=== PATIENT | female | born 1995 | race Caucasian/White ===

== ENCOUNTER 2016-09-17 17:10 | Emergency (ER) | payer OTHER ==
[~2016-09-17 17:10] MED LIST: PRENATAL1 TAB PO
--- NOTE | 2016-09-17 20:38 | DIAGNOSTIC IMAGING REPORT ---
PROCEDURE: CT HEAD WITHOUT CONTRAST INDICATION: HEADACHE TECHNIQUE: Noncontrast axial images with sagittal and coronal reformations. COMPARISON: None. FINDINGS: Brain and ventricles are normal. No evidence of an acute process or hemorrhage. Sinuses and mastoids are normal. Portions of the orbits are seen, and are normal. IMPRESSION: 1. Negative head CT. 2. Findings discussed with Dr. Barbara Small at [address] scans at this facility use dose modulation, iterative reconstruction, and/or weight-based dosing when appropriate to reduce radiation dose to as low as reasonably achievable.
--- NOTE | 2016-09-17 20:41 | ED NURSING NOTES ---
Clinical Report - Nurses [facility] [address] [place] [address] 09/17/2016 17:12 Patient: MILO DESIR TRIAGE Triage time 17:Sep 17 2016. Acuity: LEVEL 4. Chief Complaint: HEADACHE. 17:09/17/16. 17:09/17/16. Alert. No acute distress. --17:30 Gael Galaviz R.N. 17:09/17/16. BP: 117/76. HR: 95. RR: 18. O2 saturation: 99%. Temp: 98 F (oral). Pain level now: 10/05. --17:30 Gael Galaviz R.N. Weight: 61.2 kg stated. Height/Length: 67 inches Per Patient. BMI: 21.2. --17:28 Gael Galaviz R.N. Medications Abx for UTI, , 3 days pt has been on this med for UTI. --17:29 Gael Galaviz R.N. The following entry was struck by Gael Galaviz R.N., 17:29 (09/17/16) Reason - other. <<STRICKEN ENTRY-- None. --17:28 Gael Galaviz R.N. --END STRIKE>>. Medication/allergy information source: the patient. --17:30 Gael Galaviz R.N. Allergies No Known Drug Allergy. --17:28 Gael Galaviz R.N. History Arrived by private vehicle. Primary physician (GABRIELLA BRIONES). 17:27 09/17/16. This started today. ( Pt with MAX, and pain located behind her right eye). 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 PAST MEDICAL HX: Immunizations: up-to-date. Last normal menstrual period- "I just had a baby". SOCIAL HX: Never smoker. No alcohol use or drug use. No recent travel. No infectious disease exposure. No known contact with a sick individual. ABUSE ASSESSMENT: No report of abuse. FALL RISK ASSESSMENT: Fall risk assessment completed. No fall risk identified. NUTRITIONAL RISK ASSESSMENT: The nutritional risk assessment revealed no deficiencies. FUNCTIONAL ASSESSMENT: Functional assessment: no impairments noted. LEARNING NEEDS ASSESSMENT: The learning needs assessment revealed no barriers. SKIN INTEGRITY ASSESSMENT: Skin integrity risk assessment completed. No skin integrity risk identified. --17:30 Gael Galaviz R.N. PROBLEMS: Pelvic Pain. Vaginitis. Immunizations. Cystitis. UTI - Urinary Tract Infection. Ovarian Cyst. --17:29 Gael Galaviz R.N. Headache. --17:29 Gael Galaviz R.N. ADDITIONAL SURGERIES: Wrist. --17:29 Gael Galaviz R.N. Assessment 17:09/17/16. --17:30 Gael Galaviz R.N. Interventions 17:09/17/16. 17:09/17/16. ID and allergy band on patient. To treatment room. --17:30 Gael Galaviz R.N. PHYSICAL ASSESSMENT 17:09/17/16. GENERAL / NEURO / PSYCH: Alert. Oriented X 4. Appears in no acute distress. Speech within normal limits. RESPIRATORY: Respirations not labored. CVS: Capillary refill less than 2 seconds. SKIN: Skin is warm and dry. --17:30 Gael Galaviz R.N. NURSING PROGRESS NOTES 17:09/17/16. The plan of care for this patient has been created. Head of bed elevated. Reassurance given. Lights dimmed. Call light placed in reach. Side rails up x 2. Bed placed in lowest position. Brakes of bed on. --17:31 Gael Galaviz R.N. 17:09/17/16. Patient ready for evaluation- chart flagged and notification provided. --17:31 Gael Galaviz R.N. 18:09/17/16. Patient informed about reason for wait and about plan of care. --18:27 Gael Galaviz R.N. 18:29 09/17/16. --18:29 Gael Galaviz R.N. 18:28 09/17/16. BP: 113/74. HR: 78. RR: 15. O2 saturation: 99% on room air. --18:29 Gael Galaviz R.N. 19:09 09/17/16. Care transferred and report given. --19:09 Gael Galaviz R.N. ( pt states she has kids at home and wants to see an MD now, explained that we are busy and MD will see her as soon as possible.). --19:17 Maribell Serrato Patient transported to [place] by wheelchair. --19:50 Maribell Serrato Patient returned from CT by wheelchair. --20:05 Maribell Serrato DISPOSITION / DISCHARGE Departure time: 20:50. Condition at departure: improved. No learning barriers present. Discharge instructions provided and reviewed with the patient. Reviewed medication(s) side effects, precautions, dosing and course information. Prescription(s) given to the patient. Patient verbalized understanding. Written instructions provided in Tajik. No warning instructions, treatment instructions, referrals given to the patient, diet instructions or activity restrictions. No note given, follow up contact number given or stop smoking instructions. The patient was discharged by the physician. She was discharged home. She left the Emergency Department ambulatory and via private vehicle. Patient driving. FALL RISK ASSESSMENT: Fall risk assessment completed. No fall risk identified. --20:50 Maribell Serrato 20:49 09/17/16. BP: 124/64. HR: 68. RR: 16. O2 saturation: 99%. Temp: deferred. Pain level now: 09/04. --20:50 Maribell Serrato Locked/Released at 09/17/2016 20:51 by Maribell Serrato
--- NOTE | 2016-09-17 20:41 | ED NURSING NOTES ---
Clinical Report - Nurses [facility] [address] [place] [address] 09/17/2016 17:12 Patient: MILO DESIR TRIAGE Triage time 17:Sep 17 2016. Acuity: LEVEL 4. Chief Complaint: HEADACHE. 17:09/17/16. 17:09/17/16. Alert. No acute distress. --17:30 Gael Galaviz R.N. 17:09/17/16. BP: 117/76. HR: 95. RR: 18. O2 saturation: 99%. Temp: 98 F (oral). Pain level now: 10/05. --17:30 Gael Galaviz R.N. Weight: 61.2 kg stated. Height/Length: 67 inches Per Patient. BMI: 21.2. --17:28 Gael Galaviz R.N. Medications Abx for UTI, , 3 days pt has been on this med for UTI. --17:29 Gael Galaviz R.N. The following entry was struck by Gael Galaviz R.N., 17:29 (09/17/16) Reason - other. <<STRICKEN ENTRY-- None. --17:28 Gael Galaviz R.N. --END STRIKE>>. Medication/allergy information source: the patient. --17:30 Gael Galaviz R.N. Allergies No Known Drug Allergy. --17:28 Gael Galaviz R.N. History Arrived by private vehicle. Primary physician (GABRIELLA BRIONES). 17:27 09/17/16. This started today. ( Pt with MAX, and pain located behind her right eye). 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 PAST MEDICAL HX: Immunizations: up-to-date. Last normal menstrual period- "I just had a baby". SOCIAL HX: Never smoker. No alcohol use or drug use. No recent travel. No infectious disease exposure. No known contact with a sick individual. ABUSE ASSESSMENT: No report of abuse. FALL RISK ASSESSMENT: Fall risk assessment completed. No fall risk identified. NUTRITIONAL RISK ASSESSMENT: The nutritional risk assessment revealed no deficiencies. FUNCTIONAL ASSESSMENT: Functional assessment: no impairments noted. LEARNING NEEDS ASSESSMENT: The learning needs assessment revealed no barriers. SKIN INTEGRITY ASSESSMENT: Skin integrity risk assessment completed. No skin integrity risk identified. --17:30 Gael Galaviz R.N. PROBLEMS: Pelvic Pain. Vaginitis. Immunizations. Cystitis. UTI - Urinary Tract Infection. Ovarian Cyst. --17:29 Gael Galaviz R.N. Headache. --17:29 Gael Galaviz R.N. ADDITIONAL SURGERIES: Wrist. --17:29 Gael Galaviz R.N. Assessment 17:09/17/16. --17:30 Gael Galaviz R.N. Interventions 17:09/17/16. 17:09/17/16. ID and allergy band on patient. To treatment room. --17:30 Gael Galaviz R.N. PHYSICAL ASSESSMENT 17:09/17/16. GENERAL / NEURO / PSYCH: Alert. Oriented X 4. Appears in no acute distress. Speech within normal limits. RESPIRATORY: Respirations not labored. CVS: Capillary refill less than 2 seconds. SKIN: Skin is warm and dry. --17:30 Gael Galaviz R.N. NURSING PROGRESS NOTES 17:09/17/16. The plan of care for this patient has been created. Head of bed elevated. Reassurance given. Lights dimmed. Call light placed in reach. Side rails up x 2. Bed placed in lowest position. Brakes of bed on. --17:31 Gael Galaviz R.N. 17:09/17/16. Patient ready for evaluation- chart flagged and notification provided. --17:31 Gael Galaviz R.N. 18:09/17/16. Patient informed about reason for wait and about plan of care. --18:27 Gael Galaviz R.N. 18:29 09/17/16. --18:29 Gael Galaviz R.N. 18:28 09/17/16. BP: 113/74. HR: 78. RR: 15. O2 saturation: 99% on room air. --18:29 Gael Galaviz R.N. 19:09 09/17/16. Care transferred and report given. --19:09 Gael Galaviz R.N. ( pt states she has kids at home and wants to see an MD now, explained that we are busy and MD will see her as soon as possible.). --19:17 Maribell Serrato Patient transported to [place] by wheelchair. --19:50 Maribell Serrato Patient returned from CT by wheelchair. --20:05 Maribell Serrato DISPOSITION / DISCHARGE Departure time: 20:50. Condition at departure: improved. No learning barriers present. Discharge instructions provided and reviewed with the patient. Reviewed medication(s) side effects, precautions, dosing and course information. Prescription(s) given to the patient. Patient verbalized understanding. Written instructions provided in Irish. No warning instructions, treatment instructions, referrals given to the patient, diet instructions or activity restrictions. No note given, follow up contact number given or stop smoking instructions. The patient was discharged by the physician. She was discharged home. She left the Emergency Department ambulatory and via private vehicle. Patient driving. FALL RISK ASSESSMENT: Fall risk assessment completed. No fall risk identified. --20:50 Maribell Serrato 20:49 09/17/16. BP: 124/64. HR: 68. RR: 16. O2 saturation: 99%. Temp: deferred. Pain level now: 09/04. --20:50 Maribell Serrato Locked/Released at 09/17/2016 20:51 by Maribell Serrato
--- NOTE | 2016-09-17 20:41 | ED CLINICAL REPORT ---
Clinical Report - Physicians/Mid Levels [facility] [address] [place] [address] 09/17/2016 17:12 Patient: MILO DESIR Time Seen: 17:33. Arrived- By private vehicle. Historian- patient. HISTORY OF PRESENT ILLNESS Chief Complaint: HEADACHE. Is still present. This started today. Onset during pain developed gradually throughout the day. It is described as "pain". Located in the region of the right eye. No neck pain. At its maximum, severity described as moderate. When seen in the E.D., severity described as moderate. Modifying factors: worsened by bright light; relieved by nothing. The patient has had photophobia and nausea. No preceding symptoms, blurred vision, numbness or weakness. (Patient has no history of glaucoma. She states that she is concerned because her mother used to get hemorrhages behind her eyes,, secondary to PNH.). Similar symptoms previously: None. Recent medical care: Not recently seen/assessed. REVIEW OF SYSTEMS No fever, muscle aches, sinus pressure, ear pain or sore throat. No head injury, chest pain, difficulty breathing, cough or abdominal pain. No diarrhea, pain with urination, skin rash, enlarged lymph nodes or back pain. All systems otherwise negative, except as recorded above. PAST HISTORY Problems: Vaginitis. Immunizations. Cystitis. LNMP - Last Normal Menstrual Period. Ovarian Cyst. Additional Surgeries: Wrist. Medications: Abx for UTI, , 3 days pt has been on this med for UTI. Allergies: No Known Drug Allergy. SOCIAL HISTORY Never smoker. No alcohol use or drug use. ADDITIONAL NOTES The nursing notes have been reviewed. PHYSICAL EXAM Vital Signs: 09/17/2016 17:27 BP: 117/76. HR: 95. RR: 18. O2 saturation: 99%. Temp: 98 F. Pain level now: 6/10. Have been reviewed. Appearance: Alert. No acute distress. (atient appears moderately uncomfortable, with her hand over her right eye, leaning forward on the bed.). Eyes: Pupils equal, round and reactive to light. Eyes normal inspection. No conjunctival findings. (Tonometry reading on the patient's right eye reveals an average pressure of 14 over 10 taps. Patient has mild tenderness of her right globe. She does not have corneal haziness.). ENT: Nose normal. Neck: Normal inspection. CVS: Normal heart rate and rhythm. Heart sounds normal. Pulses normal. Respiratory: No respiratory distress. Abdomen: Soft and nontender. Back: Normal inspection. Skin: Skin warm and dry. Normal skin color. No rash. Normal skin turgor. Extremities: Extremities exhibit normal ROM. Neuro: Alert. Mood/affect normal. Speech normal. Cranial nerves normal (as tested). No cerebellar findings. (Patient is grossly oriented. Motor and sensory are grossly intact.). LABS, X-RAYS, AND EKG CT Head: Normal study. No acute changes. No bony abnormalities, no hemorrhage, no intracranial mass, no midline shift and no hydrocephalus. No atrophy. Head CT performed without contrast. The study was independently viewed by me, interpreted by the radiologist and contemporaneously by me and discussed with the radiologist. Prior studies were not available for comparison. Pulse Oximetry: 09/17/2016 17:27 O2 saturation: 99%. (FIO2 - room air). Interpretation: normal. PROGRESS AND PROCEDURES Course of Care: I was concerned about the patient's globe tenderness and right eye pain and felt she should be evaluated for glaucoma. However, her tonometry looked very good. She also did not have corneal haziness or injection. The patient had no visual deficits, but I did feel she should be worked up with CT scan given the family history of intracranial hemorrhage. This was done and found to be unremarkable. The patient had nearly full range of motion of her neck and no meningeal signs. The patient declined any analgesia in the emergency department even nonnarcotic. She did except a prescription for pain medication as an outpatient however No emergent condition was identified, and it did show the patient was stable for discharge home. Patient counseled in person regarding the patient's stable condition, diagnosis and need for follow-up. Concerns were addressed. Old medical records reviewed. Disposition: Discharged. Condition: stable and improved. CLINICAL IMPRESSION Acute migraine headache without aura. INSTRUCTIONS (Your CT scan and eye pressures look good.). Warnings: GENERAL WARNINGS: Return or contact your physician immediately if your condition worsens or changes unexpectedly, if not improving as expected, or if other problems arise. Your Current Medications: CONTINUE TAKING THE FOLLOWING MEDICATIONS: Abx for UTI* : 3 days pt has been on this med for UTI. Prescription Medications: Hydrocodone/APAP 5mg / 325mg: take 1 orally every 6 hours as needed for pain. Dispense five (5). No refill. Imitrex 50 mg: take 1 tablet orally every 2 hours as needed for migraine headache. Do not take more than 4 tablets in any 24 hour period. Dispense ten (10). No refill. Substitution is permissible. Follow-up: Follow up with your doctor as needed. Understanding of the discharge instructions verbalized by patient. (Electronically signed by Barbara Small MD 09/19/2016 8:00)
--- NOTE | 2016-09-17 20:42 | ED ORDER SUMMARY ---
..... Patient: MILO DESIR OrderSheet [facility] VisitID: [id number] [address] [place] [address] 20y, F Registration Date/Time: 09/17/2016 ORDER SHEET Weight: 61.2 kg (stated) Allergies: No Known Drug Allergy GENERAL ORDERS: CT Head wo Cont Urgent (19:40 09/17/2016 Anurag LUU) (Ack 19:44 AMcQuoid ER Tech1) (20:00 [facility]) MEDICATION ORDERS: IV FLUIDS: ORDER SHEET NOTES: [Electronically signed by Alejandra Noel R.N. (20:51 09/17/2016)] [Electronically signed by Barbara Small MD (08:00 09/19/2016)] [Electronically locked/signed by Alejandra Noel R.N. (20:51 09/17/2016)]
--- NOTE | 2016-09-17 20:42 | ED ORDER SUMMARY ---
..... Patient: MILO DEISR OrderSheet [facility] VisitID: [id number] [address] [place] [address] 20y, F Registration Date/Time: 09/17/2016 ORDER SHEET Weight: 61.2 kg (stated) Allergies: No Known Drug Allergy GENERAL ORDERS: CT Head wo Cont Urgent (19:40 09/17/2016 Anurag LUU) (Ack 19:44 AMcQuoid ER Tech1) (20:00 [facility]) MEDICATION ORDERS: IV FLUIDS: ORDER SHEET NOTES: [Electronically signed by Alejandra Noel R.N. (20:51 09/17/2016)] [Electronically signed by Barbara Small MD (08:00 09/19/2016)] [Electronically locked/signed by Alejandra Noel R.N. (20:51 09/17/2016)]
--- NOTE | 2016-09-19 08:01 | ED MAR SUMMARY ---
..... Medication Administration Record [facility] [address] [place], [place] [id number] Patient: MILO DESIR Petr Visit ID: [id number] 20y, F Weight: 61.2 kg Height/Length: 67 in BMI: 21.2 ALLERGIES: No Known Drug Allergy
--- NOTE | 2016-09-19 08:01 | ED MED RECONCILIATION SUMMARY ---
Patient: MILO DESIR Medication Reconciliation Report VisitID: [id number] [address] [place] [address] 20y, F Registration Date/Time: 09/17/2016 Weight: 61.2 kg Height/Length: 67 in. BMI: 21.2 ALLERGIES: No Known Drug Allergy The patient's Home Medications are listed below: CONTINUE TAKING THE FOLLOWING MEDICATIONS: Abx for UTI, 3 days pt has been on this med for UTI The source(s) of the original Home Medication information: patient The following Medications were given to the patient in the Emergency Department: None. The following Medications were prescribed to the patient: Hydrocodone/APAP 5mg / 325mg: take 1 orally every 6 hours as needed for pain. Dispense five (5). No refill. -- Barbara Small MD Imitrex 50 mg: take 1 tablet orally every 2 hours as needed for migraine headache. Do not take more than 4 tablets in any 24 hour period. Dispense ten (10). No refill. Substitution is permissible. -- Barbara Small MD
--- NOTE | 2016-09-19 08:01 | ED MED RECONCILIATION SUMMARY ---
Patient: MILO DESIR Medication Reconciliation Report [facility] VisitID: [id number] [address] [place] [address] 20y, F Registration Date/Time: 09/17/2016 Weight: 61.2 kg Height/Length: 67 in. BMI: 21.2 ALLERGIES: No Known Drug Allergy The patient's Home Medications are listed below: CONTINUE TAKING THE FOLLOWING MEDICATIONS: Abx for UTI, 3 days pt has been on this med for UTI The source(s) of the original Home Medication information: patient The following Medications were given to the patient in the Emergency Department: None. The following Medications were prescribed to the patient: Hydrocodone/APAP 5mg / 325mg: take 1 orally every 6 hours as needed for pain. Dispense five (5). No refill. -- Barbara Small MD Imitrex 50 mg: take 1 tablet orally every 2 hours as needed for migraine headache. Do not take more than 4 tablets in any 24 hour period. Dispense ten (10). No refill. Substitution is permissible. -- Barbara Small MD
--- NOTE | 2016-09-19 08:01 | ED MAR SUMMARY ---
..... Medication Administration Record [facility] [address] [place], [place] [id number] Patient: MILO DESIR Petr Visit ID: [id number] 20y, F Weight: 61.2 kg Height/Length: 67 in BMI: 21.2 ALLERGIES: No Known Drug Allergy
--- NOTE | 2016-09-19 08:01 | ED DISCHARGE INSTRUCTIONS ---
Patient: MILO DESIR General Instructions [facility] VisitID: [id number] [place] [address] 20y, F Registration Date/Time: 09/17/2016 Acute migraine headache without aura. INSTRUCTIONS (Your CT scan and eye pressures look good.). Warnings: GENERAL WARNINGS: Return or contact your physician immediately if your condition worsens or changes unexpectedly, if not improving as expected, or if other problems arise. Your Current Medications: CONTINUE TAKING THE FOLLOWING MEDICATIONS: Abx for UTI* : 3 days pt has been on this med for UTI. Prescription Medications: Hydrocodone/APAP 5mg / 325mg: take 1 orally every 6 hours as needed for pain. Dispense five (5). No refill. Imitrex 50 mg: take 1 tablet orally every 2 hours as needed for migraine headache. Do not take more than 4 tablets in any 24 hour period. Dispense ten (10). No refill. Substitution is permissible. Follow-up: Follow up with your doctor as needed. Understanding of the discharge instructions verbalized by patient. ADDITIONAL INFORMATION Migraine Headache Migraine headaches are related to changes in blood flow to the brain. This causes throbbing or constant pain on one or both sides of the head. The pain may last from a few hours to several days. There is usually nausea, vomiting, sensitivity to light and sound, and blurred vision. A migraine attack may be triggered by emotional stress, hormone changes during the menstrual cycle, oral contraceptives, alcohol use, certain foods containing tyramine, eye strain, weather changes, missing meals, or too little or too much sleep. Home Care For This Headache: 1) If you were given pain medicine for this headache, do not drive yourself home . Arrange for a ride, instead. When you get home, try to sleep. You should feel much better when you wake up. 2) Migraine headaches may improve with an ice pack on the forehead or at the base of the skull. Heat to the back of your neck may relieve any neck spasm. 3) Drink only clear liquids or eat a very light diet to avoid nausea/vomiting until symptoms improve. Preventing Future Headaches: 1) Pay attention to those factors that seem to trigger your headache. Try to avoid them when you can. If you have frequent headaches, it is useful to keep a diary of what you were doing, feeling or eating in the hours before each attack. Show this to your doctor to help find the cause of your headaches. a) If you feel that stress is a factor in your headaches, look at the sources of stress in your life. Find ways to release the build-up of those stresses by using regular exercise, relaxation methods (yoga, meditation), bio-feedback or simply taking time-out for yourself. For more information about this, consult your doctor or go to a local bookstore and review books and tapes on this subject. b) Tyramine is a substance present in the following foods : chocolate, yogurt, all cheeses except cottage cheese and cream cheese. smoked or pickled fish and meat (including lopez, caviar, bologna, pepperoni, salami), liver, avocados, bananas, figs, raisins, and red wine. Be aware that these foods may trigger a migraine in some persons. Try taking these foods out of your diet for 1-2 months to see if this reduces headache frequency. Treating Future Attacks: 1) At the first sign of a headache, take time out if possible. Find a quiet, dark, comfortable place to sit or lie down. Let yourself relax or sleep. 2) An ice pack on the forehead or area of greatest pain may help. If you are having muscle spasm and tightness of the neck, a heating pad and massage to this area may be helpful. 3) If you have been prescribed a medicine to stop a migraine headache, use this at the very first warning sign of the headache (aura or initial pain) for best results. Follow Up with your doctor if the headache is not better within the next 24 hours. If you have frequent headaches you should discuss a treatment plan with your primary care doctor. Ask if you can have medicine to take at home the next time you get a bad headache. Poorly controlled chronic headaches may require a referral to a neurologist (headache specialist). Get Prompt Medical Attention if any of the following occur: Your head pain gets worse, or does not improve within 24 hours Repeated vomiting (cant keep liquids down) Sinus or ear or throat pain (not already reported) Fever of 100.4 F (38 C) or higher, or as directed by your healthcare provider Stiff neck Extreme drowsiness, confusion or fainting Dizziness, vertigo (dizziness with spinning sensation) Weakness of an arm or leg or one side of the face Difficulty with speech or vision You have been given the following additional information: Headache, Migraine (Classical) (Electronically signed by Barbara Small MD 09/19/2016 8:00)
== END 2016-09-17 20:45 | disposition home or self-care (01) ==
LOC: ED SRH 17:10
DX: G43.009 Migraine without aura, not intractable, without status migrainosus (principal); Z84.89 Family history of other specified conditions